=== PATIENT | female | born 1990 | race Caucasian/White ===

== ENCOUNTER 2016-07-20 20:41 | Emergency (ER) | payer OTHER ==
[~2016-07-20 20:41] MED LIST: CIPR500T PO
[2016-07-20 20:43] VITALS: BP 110/74
--- NOTE | 2016-07-20 21:01 | PHYS DOC ---
Past Medical History Past Medical History: No Pertinent History Past Surgical History: No Surgical History Alcohol Use: None Drug Use: None Adult General Chief Complaint Chief Complaint: LACERATION/AVULSION [facility] HPI Patient is a 26 year old female presents emergency Department with complaint of a laceration to her right fifth finger secondary to attempted to grab an open aluminum can that was falling down. She denies any additional injuries or concerns. She denies numbness/tingling or inability to move her finger. She cannot remember the last time she had a tetanus shot. Review of Systems Review of Systems Constitutional: Denies fever or chills [] Eyes: Denies change in visual acuity, redness, or eye pain [] HENT: Denies nasal congestion or sore throat [] Respiratory: Denies cough or shortness of breath [] Cardiovascular: No additional information not addressed in HPI [] GI: Denies abdominal pain, nausea, vomiting, bloody stools or diarrhea [] : Denies dysuria or hematuria [] Musculoskeletal: Denies back pain or joint pain [] Integument: Denies rash or skin lesions [] Neurologic: Denies headache, focal weakness or sensory changes [] Endocrine: Denies polyuria or polydipsia [] Current Medications Current Medications Current Medications Medications (Trade) Dose Ordered Sig/Russell Start Time Stop Time Status Last Admin Dose Admin Diphtheria/ Tetanus/Acell Pertussis (Boostrix) 0.5 ml ONCE ONCE 07/20/16 21:15 07/20/16 21:16 DC 07/20/16 21:11 0.5 ML Lidocaine/Sodium Bicarbonate (Buffered Lidocaine 1%) 20 ml 1X ONCE 07/20/16 21:15 07/20/16 21:16 DC 07/20/16 21:11 20 ML Allergies Allergies Allergies Coded Allergies Type Severity Reaction Last Updated Verified Penicillins Allergy Intermediate HIVES 01/22/16 Yes Physical Exam Physical Exam Constitutional: Well developed, well nourished, mild distress, non-toxic appearance. HENT: Normocephalic, atraumatic, bilateral external ears normal, oropharynx moist, no oral exudates, nose normal. [] Eyes: PERRLA, EOMI, conjunctiva normal, no discharge. [] Neck: Normal range of motion, no tenderness, supple, no stridor. [] Cardiovascular:Heart rate regular rhythm, no murmur [] Lungs & Thorax: Bilateral breath sounds clear to auscultation [] Abdomen: Bowel sounds normal, soft, no tenderness, no masses, no pulsatile masses. [] Skin: Warm, dry, no erythema, no rash. [] Back: No tenderness, no CVA tenderness. [] Extremities: Right fifth finger with an approximate 2.5 cm flap laceration of the proximal phalanx, palmar aspect. This does extend into the subcutaneous fat. There is no active bleeding. Flexor and extensor mechanism is intact at both the PIPJ and the DIPJ. Fingers neurovascularly intact with capillary refill less than 2 seconds. Neurologic: Alert and oriented X 3, normal motor function, normal sensory function, no focal deficits noted. [] Psychologic: Affect normal, judgement normal, mood normal. [] Current Patient Data Vital Signs Vital Signs Date Time Temp Pulse Resp B/P Pulse Ox O2 Delivery O2 Flow Rate FiO2 07/20/16 20:43 99.0 84 18 97 Room Air 99.0 EKG EKG [] Radiology/Procedures Radiology/Procedures Procedure note: 3.5 cm laceration to the palmar surface of the proximal phalanx of the right fifth finger was anesthetized with buffered 1% lidocaine. Wound was cleansed with Betadine solution and rinsed with copious amounts of saline. The flap was retracted to examine the wound. The basement of the wound does not extend past the subcutaneous fat. Wound margins were approximated utilizing 5-0 Prolene in a simple interrupted fashion for single-layer closure with a total of 7 stitches. Patient tolerated the procedure well. Course & Med Decision Making Course & Med Decision Making Pertinent Labs and Imaging studies reviewed. (See chart for details) [] Dragon Disclaimer Dragon Disclaimer This electronic medical record was generated, in whole or in part, using a voice recognition dictation system. Departure Departure Impression: Primary Impression: Laceration Disposition: 01 HOME, SELF-CARE Condition: IMPROVED Referrals: NO PCP (PCP) Patient Instructions: Diphtheria Toxoid; Tetanus Toxoid Adsorbed, DT, Td, Laceration Care, Adult, [id number] Additional Instructions: 1. Stitches need to be removed in 7-10 days. 2. Review the discharge instructions provided for self-care and reasons to return the emergency department. 3. Acetaminophen 4-6 hours or ibuprofen every 8 hours for the discomfort. 4. Follow-up with your primary care doctor for wound check and suture removal in 7-10 days. If you do not have one, then use the pamphlet provided for assistance in finding a primary care doctor to address your medical concerns. CHERYL LI Jul 20, 2016 21:01
[2016-07-20] MEDS ORDERED: DIPHTH,PERTUSS(ACELL),TET TOX 0.5 ML DISP.SYRIN. VAX IM ONE (21:15)
[2016-07-20] MEDS ORDERED: LIDOCAINE 1% / SOD BICARB 8.4% 20 ML VIAL. IJ ONE (21:15)
== END 2016-07-20 21:34 | disposition home or self-care (01) ==
LOC: ER 20:41
DX: S61.216A Laceration without foreign body of right little finger without damage to nail, initial encounter (principal); Z88.0 Allergy status to penicillin; W26.8XXA Contact with other sharp object(s), not elsewhere classified, initial encounter; Y93.89 Activity, other specified; Y92.89 Other specified places as the place of occurrence of the external cause; Y99.8 Other external cause status
CPT/HCPCS: 12002; 90471; 90715; 99283-25

== ENCOUNTER 2016-07-30 20:32 | Emergency (ER) | payer OTHER ==
[~2016-07-30] VITALS: Ht 165.1 cm; Wt 95.3 kg
[2016-07-30 20:39] VITALS: BP 119/72
[2016-07-30 21:15] LABS: BILIRUBIN,URINE NEGATIVE (NEG); GLUCOSE,URINE NEGATIVE (NEG); NITRITE,URINE NEGATIVE (NEG); PROTEIN,URINE NEGATIVE (NEG-TRACE); UROBILINOGEN,URINE 0.2 mg/dL (0.2 mg/dL)
[2016-07-30 21:26] LABS: BACTERIA,URINE MODERATE /HPF (0-FEW); RBC,URINE 0 /HPF (0-2); SQUAMOUS EPITHELIAL CELL,UR MOD /LPF
[2016-07-30] MEDS ORDERED: FAMOTIDINE 20 MG/2 ML VIAL IVP ONE (21:30)
[2016-07-30] MEDS ORDERED: ONDANSETRON PF 4 MG/2 ML VIAL. IV ONE (21:30)
[2016-07-30] MEDS ORDERED: IV NORMAL SALINE 1000ML BAG 1,000 ML IV SCH (21:30)
[2016-07-30 21:38] LABS: BASO % 0 % (0-3); EOS % 0 % (0-3); HEMATOCRIT 39.1 % (36.0-47.0); HEMOGLOBIN 13.3 g/dL (12.0-15.5); LYMPH # 1.3 x10^3/uL (1.0-4.8); LYMPH % 16 % (24-48); MEAN CORPUSCULAR HEMOGLOBIN 30 pg (25-35); MEAN CORPUSCULAR HGB CONC 34 g/dL (31-37); MEAN CORPUSCULAR VOLUME 90 fL (79-100); MONO % 6 % (0-9); NEUT % 78 % (31-73); PLATELET COUNT 232 x10^3/uL (140-400); RED BLOOD COUNT 4.35 x10^6/uL (3.50-5.40); RED CELL DISTRIBUTION WIDTH 13.2 % (11.5-14.5); WHITE BLOOD COUNT 8.5 x10^3/uL (4.0-11.0)
[2016-07-30 21:52] LABS: CALCIUM 8.8 mg/dL (8.5-10.1); CREATININE 0.6 mg/dL (0.6-1.0); GFR 122.8; POTASSIUM 3.6 mmol/L (3.5-5.1)
[2016-07-30 21:53] LABS: NEG OBC SER NEG; POS OBC SER POS
[2016-07-30 21:58] LABS: ALBUMIN 3.7 g/dL (3.4-5.0); ALBUMIN/GLOBULIN RATIO 0.8 (1.0-1.7); TOTAL BILIRUBIN 0.5 mg/dL (0.2-1.0); TOTAL PROTEIN 8.4 g/dL (6.4-8.2)
[2016-07-30] MEDS ORDERED: ONDA4TAB10 SL (22:03)
--- NOTE | 2016-07-30 22:03 | PHYS DOC ---
Past Medical History Past Medical History: No Pertinent History Past Surgical History: No Surgical History Alcohol Use: None Drug Use: None Adult General Chief Complaint Chief Complaint: NAUSEA/VOMITING/DIARRHA HPI HPI Patient is a 26 year old female who presents here today complaining of nausea vomiting and hematemesis. Patient denies any liver longer any problems other than a UTI. Patient has no history of hypertension or diabetes. Patient has no history of peptic ulcer disease. Patient has not had any abdominal surgeries in the past. Patient does not smoke or do drugs. Patient is allergic to penicillin. Patient has any fevers shakes chills. Patient reports she's had 5 episodes of nausea and vomiting which is typical before she starts her menses. Patient reports her last menstrual period was one month ago per patient has any abdominal pain. Patient denies any dysuria frequency or urgency. Patient has any chest pain or shortness of breath. Patient reports that she had multiple episodes of vomiting the last time she's noticed a streak of blood in it. Patient's physical exam is unremarkable. Patient's abdomen is soft nontender no rebound or guarding. Patient does not present with any signs or symptoms consistent with an acute surgical abdomen. Patient does not present with any signs or symptoms of hemodynamic instability. Patient's heart rate was approximately 75 when talking her. Patient denies any dizziness or postural symptoms. Patient's ER course was significant for normal labs. Patient's parents this was negative. Patient's electrolytes were within normal limits. Patient's hemoglobin was normal. A/P #1 nausea vomiting. Patient clinically and hemodynamically stable in the ER. Patient does not show any signs or symptoms consistent with hemodynamic instability. Patient does blood in her vomit which I believe are secondary to multiple episodes of vomiting. Patient does not present with typical signs or symptoms I would be concerned with Boerhaave's or esophageal injury. Patient will be discharged home in stable condition with strict precautions to return to the ER if she has any persistent vomiting of blood or any concerns whatsoever. Patient understands these precautions and does agree to return the ER is concerned that she might have. Patient will be discharged home with Ethel ODT's assist her with her emesis. Review of Systems Review of Systems Constitutional: Denies fever or chills [] Eyes: Denies change in visual acuity, redness, or eye pain [] HENT: Denies nasal congestion or sore throat [] All other review systems are negative except as documented in the history of present illness portion. Current Medications Current Medications Current Medications Medications (Trade) Dose Ordered Sig/Russell Start Time Stop Time Status Last Admin Dose Admin Famotidine (Pepcid) 20 mg 1X ONCE 07/30/16 21:30 07/30/16 21:31 DC 07/30/16 21:30 20 MG Ondansetron HCl (Zofran) 4 mg 1X ONCE 07/30/16 21:30 07/30/16 21:31 DC 07/30/16 21:30 4 MG Sodium Chloride (Iv Sodium Chloride 0.9% 1000ml Bag) 1,000 ml @ 1,000 mls/hr Q1H 07/30/16 21:30 07/30/16 22:29 07/30/16 21:30 1,000 MLS/HR Allergies Allergies Allergies Coded Allergies Type Severity Reaction Last Updated Verified Penicillins Allergy Intermediate HIVES 01/22/16 Yes Physical Exam Physical Exam Constitutional: Well developed, well nourished, no acute distress, non-toxic appearance. [] HENT: Normocephalic, atraumatic, bilateral external ears normal, oropharynx moist, no oral exudates, nose normal. [] Eyes: PERRLA, EOMI, conjunctiva normal, no discharge. [] Neck: Normal range of motion, no tenderness, supple, no stridor. [] Cardiovascular:Heart rate regular rhythm, no murmur [] Lungs & Thorax: Bilateral breath sounds clear to auscultation [] Abdomen: Bowel sounds normal, soft, no tenderness, no masses, no pulsatile masses. [] Skin: Warm, dry, no erythema, no rash. [] Back: No tenderness, no CVA tenderness. [] Extremities: No tenderness, no cyanosis, no clubbing, ROM intact, no edema. [] Neurologic: Alert and oriented X 3, normal motor function, normal sensory function, no focal deficits noted. [] Psychologic: Affect normal, judgement normal, mood normal. [] Current Patient Data Vital Signs Vital Signs Date Time Temp Pulse Resp B/P Pulse Ox O2 Delivery O2 Flow Rate FiO2 07/30/16 20:39 98.4 90 16 119/72 97 Room Air 98.4 Lab Values Laboratory Tests Test 07/30/16 19:57 07/30/16 21:00 07/30/16 21:30 POC Urine HCG, Qualitative Hcg negative (Negative) Urine Collection Type Unknown Urine Color Yellow Urine Clarity Clear Urine pH 6.0 Urine Specific [place] 1.025 Urine Protein Negativemg/dL (NEG-TRACE) Urine Glucose (UA) Negativemg/dL (NEG) Urine Ketones (Stick) Negativemg/dL (NEG) Urine Blood Negative (NEG) Urine Nitrite Negative (NEG) Urine Bilirubin Negative (NEG) Urine Urobilinogen Dipstick 0.2mg/dL (0.2 mg/dL) Urine Leukocyte Esterase Negative (NEG) Urine RBC 0/HPF (0-2) Urine WBC 1-4/HPF (0-4) Urine Squamous Epithelial Cells Mod/LPF Urine Bacteria Moderate/HPF (0-FEW) Urine Mucus Mod/LPF White Blood Count 8.5x10^3/uL (4.0-11.0) Red Blood Count 4.35x10^6/uL (3.50-5.40) Hemoglobin 13.3g/dL (12.0-15.5) Hematocrit 39.1% (36.0-47.0) Mean Corpuscular Volume 90fL (79-100) Mean Corpuscular Hemoglobin 30pg (25-35) Mean Corpuscular Hemoglobin Concent 34g/dL (31-37) Red Cell Distribution Width 13.2% (11.5-14.5) Platelet Count 232x10^3/uL (140-400) Neutrophils (%) (Auto) 78% (31-73) H Lymphocytes (%) (Auto) 16% (24-48) L Monocytes (%) (Auto) 6% (0-9) Eosinophils (%) (Auto) 0% (0-3) Basophils (%) (Auto) 0% (0-3) Neutrophils # (Auto) 6.6x10^3uL (1.8-7.7) Lymphocytes # (Auto) 1.3x10^3/uL (1.0-4.8) Monocytes # (Auto) 0.5x10^3/uL (0.0-1.1) Eosinophils # (Auto) 0.0x10^3/uL (0.0-0.7) Basophils # (Auto) 0.0x10^3/uL (0.0-0.2) Sodium Level 139mmol/L (136-145) Potassium Level 3.6mmol/L (3.5-5.1) Chloride Level 103mmol/L (98-107) Carbon Dioxide Level 24mmol/L (21-32) Anion Gap 12 (6-14) Blood Urea Nitrogen 9mg/dL (7-20) Creatinine 0.6mg/dL (0.6-1.0) Estimated GFR (Cockcroft-Gault) 122.8 BUN/Creatinine Ratio 15 (6-20) Glucose Level 96mg/dL (70-99) Calcium Level 8.8mg/dL (8.5-10.1) Total Bilirubin Pending Aspartate Amino Transferase (AST) Pending Alanine Aminotransferase (ALT) Pending Alkaline Phosphatase Pending Total Protein Pending Albumin Pending Albumin/Globulin Ratio Pending Lipase Pending Serum Test, Qualitative Negative (NEG) Laboratory Tests 07/30/16 21:30 Laboratory Tests 07/30/16 21:30 EKG EKG [] Radiology/Procedures Radiology/Procedures [] Impressions: Obstruction series not indicated secondary to patient's abdominal exam being completely nontender. Normal active bowel sounds. Course & Med Decision Making Course & Med Decision Making Pertinent Labs and Imaging studies reviewed. (See chart for details) [] Dragon Disclaimer Dragon Disclaimer This electronic medical record was generated, in whole or in part, using a voice recognition dictation system. Departure Departure Impression: Primary Impression: Dehydration Additional Impressions: Nausea & vomiting Hematemesis Disposition: 01 HOME, SELF-CARE Condition: IMPROVED Referrals: NO PCP (PCP) Patient Instructions: Hematemesis Scripts Ondansetron (Zofran Odt)4 Mg Tab.rapdis1 Tab SL Q6HRS PRN NAUSEA #12 TAB Prov:MELISSA VALENCIA MD 07/30/16 Problem Qualifiers MELISSA VALENCIA MD Jul 30, 2016 22:03
== END 2016-07-30 22:45 | disposition home or self-care (01) ==
LOC: ER 20:32
DX: E86.0 Dehydration (principal); K92.0 Hematemesis; Z88.0 Allergy status to penicillin
CPT/HCPCS: 36415; 80053; 81001; 81025; 83690; 84703; 85027; 87086; 96374; 99284; J2405; J7030; S0028

== ENCOUNTER → 2016-12-24 | Outpatient (CLI) | payer OTHER ==
[~2016-12-24] MED LIST changes: +ONDA4TAB10 SL
--- NOTE | 2016-12-24 08:41 | RAD ---
Indication possible lump on physical exam. Targeted imaging of the right breast was performed. Examination was targeted to approximately the 3:00 position of the breast were a possible lump was identified on physical exam. No abnormality is seen in the targeted area of the right breast examined. IMPRESSION: Normal targeted ultrasound evaluation of the right breast. If there is a discrete, palpable, mass on physical examination biopsy may be warranted despite unremarkable imaging. BI-RADS 2. Benign findings
== END | disposition home or self-care (01) ==
LOC: KCIC US 08:03
PROVIDERS: ATTEND Family Medicine
DX: N63 Unspecified lump in breast (principal)
CPT/HCPCS: 76641

== ENCOUNTER 2017-02-22 07:52 | Emergency (ER) | payer OTHER ==
[~2017-02-22] VITALS: Ht 165.1 cm; Wt 99.8 kg
--- NOTE | 2017-02-22 08:04 | PHYS DOC ---
Past Medical History Past Medical History: No Pertinent History Past Surgical History: No Surgical History Alcohol Use: None Drug Use: None Adult General Chief Complaint Chief Complaint: ABDOMINAL PAIN HPI HPI Patient is a 26 year old female who presents with nausea vomiting diarrhea. She states her symptoms started over night. She's vomited several times since had liquid stools. She does have crampy suprapubic abdominal pain. She denies any fevers chills currently. She denies any recent travel or sick contacts. He states is a crampy type abdominal pain that's been there constantly over the last several hours. Review of Systems Review of Systems Constitutional: Denies fever or chills [] Eyes: Denies change in visual acuity, redness, or eye pain [] HENT: Denies nasal congestion or sore throat [] Respiratory: Denies cough or shortness of breath [] Cardiovascular: No additional information not addressed in HPI [] GI: Positive for abdominal pain, nausea, vomiting, diarrhea, Denies any bloody stools : Denies dysuria or hematuria [] Musculoskeletal: Denies back pain or joint pain [] Integument: Denies rash or skin lesions [] Neurologic: Denies headache, focal weakness or sensory changes [] Endocrine: Denies polyuria or polydipsia [] Current Medications Current Medications Current Medications Medications (Trade) Dose Ordered Sig/Russell Start Time Stop Time Status Last Admin Dose Admin Levofloxacin (Levaquin) 500 mg 1X ONCE 02/22/17 10:30 02/22/17 10:31 Ondansetron HCl (Zofran) 4 mg 1X ONCE 02/22/17 08:15 02/22/17 08:16 DC 02/22/17 08:29 4 MG Sodium Chloride 1,000 ml @ 1,000 mls/hr Q1H 02/22/17 08:11 02/22/17 09:10 DC 02/22/17 08:29 1,000 MLS/HR Allergies Allergies Allergies Coded Allergies Type Severity Reaction Last Updated Verified Penicillins Allergy Intermediate HIVES 01/22/16 Yes Physical Exam Physical Exam Constitutional: Well developed, well nourished, no acute distress, non-toxic appearance. [] HENT: Normocephalic, atraumatic, bilateral external ears normal, oropharynx moist, no oral exudates, nose normal. [] Eyes: PERRLA, EOMI, conjunctiva normal, no discharge. [] Neck: Normal range of motion, no tenderness, supple, no stridor. [] Cardiovascular:Heart rate regular rhythm, no murmur [] Lungs & Thorax: Bilateral breath sounds clear to auscultation [] Abdomen: Bowel sounds normal, soft, no tenderness, no masses, no pulsatile masses. [] Skin: Warm, dry, no erythema, no rash. [] Back: No tenderness, no CVA tenderness. [] Extremities: No tenderness, no cyanosis, no clubbing, ROM intact, no edema. [] Neurologic: Alert and oriented X 3, normal motor function, normal sensory function, no focal deficits noted. [] Psychologic: Affect normal, judgement normal, mood normal. [] Current Patient Data Vital Signs Vital Signs Date Time Temp Pulse Resp B/P (MAP) Pulse Ox O2 Delivery O2 Flow Rate FiO2 02/22/17 09:07 104 19 105/63 (77) 95 Room Air 02/22/17 07:55 98.4 98.4 Lab Values Laboratory Tests Test 02/22/17 07:55 02/22/17 08:01 02/22/17 08:25 Urine Collection Type Unknown Urine Color Yellow Urine Clarity Clear Urine pH 6.5 Urine Specific [place] 1.025 Urine Protein Negative mg/dL (NEG-TRACE) Urine Glucose (UA) Negative mg/dL (NEG) Urine Ketones (Stick) Negative mg/dL (NEG) Urine Blood Negative (NEG) Urine Nitrite Negative (NEG) Urine Bilirubin Negative (NEG) Urine Urobilinogen Dipstick 0.2 mg/dL (0.2 mg/dL) Urine Leukocyte Esterase Large (NEG) Urine RBC 0 /HPF (0-2) Urine WBC 20-40 /HPF (0-4) Urine Squamous Epithelial Cells Many /LPF Urine Bacteria Many /HPF (0-FEW) Urine Opiates Screen Neg (NEG) Urine Methadone Screen Neg (NEG) Urine Barbiturates Neg (NEG) Urine Phencyclidine Screen Neg (NEG) Urine Amphetamine/Methamphetamine Neg (NEG) Urine Benzodiazepines Screen Neg (NEG) Urine Cocaine Screen Neg (NEG) Urine Cannabinoids Screen Neg (NEG) Urine Ethyl Alcohol Neg (NEG) POC Urine HCG, Qualitative Hcg negative (Negative) White Blood Count 6.6 x10^3/uL (4.0-11.0) Red Blood Count 4.46 x10^6/uL (3.50-5.40) Hemoglobin 13.7 g/dL (12.0-15.5) Hematocrit 40.3 % (36.0-47.0) Mean Corpuscular Volume 90 fL (79-100) Mean Corpuscular Hemoglobin 31 pg (25-35) Mean Corpuscular Hemoglobin Concent 34 g/dL (31-37) Red Cell Distribution Width 12.2 % (11.5-14.5) Platelet Count 201 x10^3/uL (140-400) Neutrophils (%) (Auto) 87 % (31-73) H Lymphocytes (%) (Auto) 8 % (24-48) L Monocytes (%) (Auto) 4 % (0-9) Eosinophils (%) (Auto) 0 % (0-3) Basophils (%) (Auto) 0 % (0-3) Neutrophils # (Auto) 5.7 x10^3uL (1.8-7.7) Lymphocytes # (Auto) 0.5 x10^3/uL (1.0-4.8) L Monocytes # (Auto) 0.3 x10^3/uL (0.0-1.1) Eosinophils # (Auto) 0.0 x10^3/uL (0.0-0.7) Basophils # (Auto) 0.0 x10^3/uL (0.0-0.2) Segmented Neutrophils % 91 % (35-66) H Band Neutrophils % 1 % (0-9) Lymphocytes % 3 % (24-48) L Monocytes % 5 % (0-10) Platelet Estimate Adequate (ADEQUATE) Sodium Level 136 mmol/L (136-145) Potassium Level 3.7 mmol/L (3.5-5.1) Chloride Level 101 mmol/L (98-107) Carbon Dioxide Level 24 mmol/L (21-32) Anion Gap 11 (6-14) Blood Urea Nitrogen 12 mg/dL (7-20) Creatinine 0.7 mg/dL (0.6-1.0) Estimated GFR (Cockcroft-Gault) 102.8 BUN/Creatinine Ratio 17 (6-20) Glucose Level 112 mg/dL (70-99) H Calcium Level 9.0 mg/dL (8.5-10.1) Total Bilirubin 0.5 mg/dL (0.2-1.0) Aspartate Amino Transferase (AST) 18 U/L (15-37) Alanine Aminotransferase (ALT) 16 U/L (14-59) Alkaline Phosphatase 54 U/L (46-116) Creatine Kinase 52 U/L (26-192) Creatine Kinase MB (Mass) < 0.5 ng/mL (0.0-3.6) Creatine Kinase MB Relative Index % (0-4) Total Protein 7.7 g/dL (6.4-8.2) Albumin 3.4 g/dL (3.4-5.0) Albumin/Globulin Ratio 0.8 (1.0-1.7) L Lipase 70 U/L (73-393) L Serum Test, Qualitative Negative (NEG) Laboratory Tests 02/22/17 08:25 Laboratory Tests 02/22/17 08:25 EKG EKG [] Radiology/Procedures Radiology/Procedures [] Impressions: Nausea vomiting diarrhea UTI Course & Med Decision Making Course & Med Decision Making Pertinent Labs and Imaging studies reviewed. (See chart for details) Labs do not show any acute abnormality's. Patient isn't overtly received abdominal and pelvic ultrasounds of which have asked the charge is to be reversed on. She's being discharged home with antibiotics and ODT Zofran. She feels better. Return precautions given. Dragon Disclaimer Dragon Disclaimer This electronic medical record was generated, in whole or in part, using a voice recognition dictation system. Departure Departure Impression: Primary Impression: Nausea vomiting and diarrhea Disposition: 01 HOME, SELF-CARE Condition: STABLE Referrals: DAVION PEPE MD (PCP) Patient Instructions: Viral Gastroenteritis Additional Instructions: You were seen today for nausea vomiting diarrhea. Her symptoms have improved with IV fluids and antinausea meds. Your being discharged home with antibiotics for the next 3 days in addition to antinausea meds. Please eat a bland diet and push fluids. If you develop uncontrolled nausea vomiting, fevers, abdominal pain or other concerns please return back to emergency pertinent. You should follow up with primary care physician within the next 3-5 days. Scripts Levofloxacin (LEVAQUIN) 500 Mg Tablet 1 TAB PO DAILY, #2 TAB Prov: MY ELI MD 02/22/17 Ondansetron (ZOFRAN ODT) 4 Mg Tab.rapdis 1 TAB SL Q8HRS, #6 TAB Prov: MY ELI MD 02/22/17 MY ELI MD Feb 22, 2017 08:04
[2017-02-22] MEDS ORDERED: IV NORMAL SALINE 1000ML BAG 1,000 ML IV SCH (08:11)
[2017-02-22] MEDS ORDERED: ONDANSETRON PF 4 MG/2 ML VIAL. IV ONE (08:15)
[2017-02-22 08:36] LABS: BILIRUBIN,URINE NEGATIVE (NEG); GLUCOSE,URINE NEGATIVE (NEG); NITRITE,URINE NEGATIVE (NEG); PH,URINE 6.5; PROTEIN,URINE NEGATIVE (NEG-TRACE); UROBILINOGEN,URINE 0.2 mg/dL (0.2 mg/dL)
[2017-02-22 08:39] LABS: BASO % 0 % (0-3); EOS % 0 % (0-3); HEMATOCRIT 40.3 % (36.0-47.0); HEMOGLOBIN 13.7 g/dL (12.0-15.5); LYMPH # 0.5 x10^3/uL (1.0-4.8); LYMPH % 8 % (24-48); MEAN CORPUSCULAR HEMOGLOBIN 31 pg (25-35); MEAN CORPUSCULAR HGB CONC 34 g/dL (31-37); MEAN CORPUSCULAR VOLUME 90 fL (79-100); MONO % 4 % (0-9); NEUT % 87 % (31-73); PLATELET COUNT 201 x10^3/uL (140-400); RED BLOOD COUNT 4.46 x10^6/uL (3.50-5.40); RED CELL DISTRIBUTION WIDTH 12.2 % (11.5-14.5); WHITE BLOOD COUNT 6.6 x10^3/uL (4.0-11.0)
[2017-02-22 08:53] LABS: BARBITURATES NEG (NEG); BENZODIAZEPINES NEG (NEG); CANNABINOIDS NEG (NEG); COCAINE NEG (NEG); METHADONE NEG (NEG); OPIATES NEG (NEG); PHENCYCLIDINE NEG (NEG)
[2017-02-22 08:58] LABS: SQUAMOUS EPITHELIAL CELL,UR MANY /LPF
[2017-02-22 08:59] LABS: CREATININE 0.7 mg/dL (0.6-1.0); GFR 102.8; POTASSIUM 3.7 mmol/L (3.5-5.1)
[2017-02-22 08:59] LABS: BACTERIA,URINE MANY /HPF (0-FEW); RBC,URINE 0 /HPF (0-2); WBC,URINE 20-40 /HPF (0-4)
[2017-02-22 09:03] LABS: NEG OBC SER NEG; POS OBC SER POS
[2017-02-22 09:04] LABS: ALBUMIN 3.4 g/dL (3.4-5.0); ALBUMIN/GLOBULIN RATIO 0.8 (1.0-1.7); TOTAL BILIRUBIN 0.5 mg/dL (0.2-1.0); TOTAL PROTEIN 7.7 g/dL (6.4-8.2)
[2017-02-22 09:07] VITALS: BP 105/63
[2017-02-22 09:17] LABS: CKMB MASS < 0.5 ng/mL (0.0-3.6); CREATINE KINASE 52 U/L (26-192)
[2017-02-22 09:54] LABS: PLT ESTIMATE ADEQUATE (ADEQUATE)
[2017-02-22] MEDS ORDERED: LEVO500T59 PO (10:20)
[2017-02-22] MEDS ORDERED: ONDA4TAB10 SL (10:20)
--- NOTE | 2017-02-22 10:20 | RAD ---
Transabdominal and transvaginal sonography of the pelvis History: Pelvic pain. Transabdominal sonography: The uterus is anteverted in position. The uterus is poorly visualized. Neither ovary is visualized. Therefore, transvaginal sonography will be performed. No adnexal mass or free fluid is evident. Transvaginal sonography: The endometrial canal measures 4.8 mm in thickness which is normal. No uterine mass or fibroid is seen. No free fluid is seen within the cul-de-sac. The right ovary measures 2.7 cm and 3.1 cm and 2.7 cm in size and contains multiple small follicular cysts. No dominant ovarian cyst or mass is seen. Color Doppler flow is seen within the right ovary. The left ovary is not visualized. Bilateral pelvic varices are seen within the adnexa. No adnexal mass is seen otherwise. No free fluid is evident. IMPRESSION: Bilateral pelvic varices within the adnexa. No adnexal mass is seen otherwise. The left ovary is not visualized.
--- NOTE | 2017-02-22 10:26 | RAD ---
EXAM: ABDOMINAL ULTRASOUND. HISTORY: Abdominal pain. COMPARISON: None. FINDINGS: Sonographic evaluation of the abdomen was performed. The graphic coordinator suggests hepatic steatosis on real-time scanning but this is not clear on static images. There are no focal lesions. Liver appears mildly enlarged spanning 18 cm. The spleen measures 11.1 cm. The gallbladder is unremarkable without evidence of stones, wall thickening or pericholecystic fluid. There is no sonographic Cochran sign. The common duct measures 5 mm. Limited images of the visualized portions of the head of the pancreas reveal no abnormality. The right kidney measures 10.4 cm. Cortical thickness and echogenicity are preserved. There is no hydronephrosis. The left kidney measures 11.3 cm. Cortical thickness and echogenicity are preserved. There is no hydronephrosis. The visualized portions of the abdominal aorta and inferior vena cava are grossly patent and normal in caliber. IMPRESSION: 1. No cause for acute pain is identified. Borderline hepatomegaly.
== END 2017-02-22 10:35 | disposition home or self-care (01) ==
LOC: ER 07:52
DX: N39.0 Urinary tract infection, site not specified (principal); R19.7 Diarrhea, unspecified; Z88.0 Allergy status to penicillin
CPT/HCPCS: 36415; 76700; 76830; 76856; 80053; 80307; 81001; 81025; 82553; 83690; 84703; 85007; 85025; 87086; 96361; 96374; 99284; J2405; J7030; 96375; G0479

== ENCOUNTER 2018-02-08 07:56 | Emergency (ER) | payer OTHER ==
[~2018-02-08] VITALS: Ht 162.6 cm; Wt 99.8 kg
[~2018-02-08 07:56] MED LIST changes: +LEVO500T59 PO
[2018-02-08 08:00] VITALS: BP 121/75
[2018-02-08] MEDS ORDERED: FAMOTIDINE 20 MG TABLET. PO ONE (08:15)
[2018-02-08] MEDS ORDERED: FAMO-63 PO (08:32)
[2018-02-08] MEDS ORDERED: METH4TAB2 PO (08:32)
--- NOTE | 2018-02-08 08:33 | PHYS DOC ---
Past Medical History Past Medical History: No Pertinent History Past Surgical History: No Surgical History Alcohol Use: Occasionally Drug Use: None Adult General Chief Complaint Chief Complaint: SKIN RASH/ABSCESS [facility] HPI Patient is a 27 year old female who presents with a rash to her face, neck and torso. The patient states that she noticed a rash yesterday after work. She did not eat any new foods or used any new products that she knows of. She did try using her son's hydrocortisone cream with little relief. She states that it did help with the itching but she continued to have the rash. She has been taking Benadryl. Review of Systems Review of Systems Constitutional: Denies fever or chills [] Respiratory: Denies cough or shortness of breath [] Cardiovascular: No additional information not addressed in HPI [] GI: Denies abdominal pain, nausea, vomiting, bloody stools or diarrhea [] : Denies dysuria or hematuria [] Musculoskeletal: Denies back pain or joint pain [] Integument: See history of present illness Neurologic: Denies headache, focal weakness or sensory changes [] Endocrine: Denies polyuria or polydipsia [] All other systems were reviewed and found to be within normal limits, except as documented in this note. Current Medications Current Medications Current Medications Medications (Trade) Dose Ordered Sig/Russell Start Time Stop Time Status Last Admin Dose Admin Famotidine (Pepcid) 20 mg 1X ONCE 02/08/18 08:15 02/08/18 08:16 DC 02/08/18 08:42 20 MG Allergies Allergies Allergies Coded Allergies Type Severity Reaction Last Updated Verified Penicillins Allergy Intermediate HIVES 01/22/16 Yes Physical Exam Physical Exam Constitutional: Well developed, well nourished, no acute distress, non-toxic appearance. [] Cardiovascular:Heart rate regular rhythm, no murmur [] Lungs & Thorax: Bilateral breath sounds clear to auscultation [] Abdomen: Bowel sounds normal, soft, no tenderness, no masses, no pulsatile masses. [] Skin: The patient has erythematous patches to her forehead, neck and behind her ear to the right side with scattered erythematous patches on her torso Back: No tenderness, no CVA tenderness. [] Extremities: No tenderness, no cyanosis, no clubbing, ROM intact, no edema. [] Neurologic: Alert and oriented X 3, normal motor function, normal sensory function, no focal deficits noted. [] Psychologic: Affect normal, judgement normal, mood normal. [] Current Patient Data Vital Signs Vital Signs Date Time Temp Pulse Resp B/P (MAP) Pulse Ox O2 Delivery O2 Flow Rate FiO2 02/08/18 08:00 97.9 74 17 100 Room Air 97.9 EKG EKG [] Radiology/Procedures Radiology/Procedures [] Course & Med Decision Making Course & Med Decision Making Pertinent Labs and Imaging studies reviewed. (See chart for details) []The patient was given a dose of Pepcid in the emergency department. She has been taking benadryl at home. Dragon Disclaimer Dragon Disclaimer This electronic medical record was generated, in whole or in part, using a voice recognition dictation system. Departure Departure Impression: Primary Impression: Contact dermatitis Disposition: HOME, SELF-CARE Condition: STABLE Referrals: DAVION PEPE MD (PCP) Patient Instructions: Contact Dermatitis Additional Instructions: Take the medications as prescribed. Continue to use Benadryl scheduled. Follow- up with your primary care provider for recheck in 3 days if not improving or return to the emergency department if worsening. Scripts Famotidine (PEPCID) 20 Mg Tablet 20 MG PO HS, #20 TAB Prov: BOGDAN MELTON APRN 02/08/18 Methylprednisolone (MEDROL) 4 Mg Tab.ds.pk 1 PKG PO UD, #1 PKG Prov: BOGDAN MELTON APRN 02/08/18 BOGDAN MELTON APRN Feb 08, 2018 08:33
== END 2018-02-08 08:43 | disposition home or self-care (01) ==
LOC: ER 07:56
DX: L25.9 Unspecified contact dermatitis, unspecified cause (principal); Z88.0 Allergy status to penicillin
CPT/HCPCS: 99283

== ENCOUNTER → 2018-05-31 | Outpatient (CLI) | payer OTHER ==
[~2018-05-31] MED LIST changes: +FAMO-63 PO; +METH4TAB2 PO
--- NOTE | 2018-05-31 16:22 | RAD ---
EXAM: Obstetrics sonogram. HISTORY: Vaginal spotting. Uncertain dates. TECHNIQUE: Sonographic imaging of a gravid uterus was performed. COMPARISON: None. FINDINGS: The uterus is normal in size. There is a single intrauterine gestational sac with pole and yolk sac. The crown-rump length is 1.6 cm, corresponding with a gestational age of 8 weeks and 0 days. The heart rate is normal at 163 bpm. The estimated due date based on ultrasound measurements is 01/10/2019. The ovaries are normal in size and demonstrate normal blood flow. There is no pelvic free fluid. The gestational sac is normal in configuration and located appropriately. IMPRESSION: Single intrauterine fetus with an estimated gestational age of 8 weeks and 0 days and heart rate of 163 bpm. Electronically signed by: Sarah Burciaga MD (05/31/2018 4:20 PM) [facility]
== END | disposition home or self-care (01) ==
LOC: US 15:58
PROVIDERS: ATTEND Family Medicine
DX: O20.9 Hemorrhage in early pregnancy, unspecified (principal); Z3A.08 8 weeks gestation of pregnancy
CPT/HCPCS: 76801

== ENCOUNTER 2018-06-16 20:24 | Emergency (ER) | payer OTHER ==
[~2018-06-16] VITALS: Ht 165.1 cm; Wt 104.3 kg
[2018-06-16 20:25] VITALS: BP 127/71
[2018-06-16] MEDS ORDERED: IV NORMAL SALINE 1000ML BAG 1,000 ML IV SCH (21:15)
[2018-06-16 21:30] LABS: CALCIUM 8.7 mg/dL (8.5-10.1); CREATININE 0.5 mg/dL (0.6-1.0); GFR 149.1; POTASSIUM 3.7 mmol/L (3.5-5.1)
[2018-06-16 21:37] LABS: ALBUMIN 3.2 g/dL (3.4-5.0); ALBUMIN/GLOBULIN RATIO 0.7 (1.0-1.7); TOTAL BILIRUBIN 0.2 mg/dL (0.2-1.0); TOTAL PROTEIN 7.5 g/dL (6.4-8.2)
--- NOTE | 2018-06-16 22:07 | RAD ---
Indication:pelvic pain and vag spotting x 90 minutes< TECHNIQUE: Ultrasound OB less than 14 weeks. COMPARISON: 05/31/2018 FINDINGS: Anteverted uterus measuring 12.9 x 6.5 x 9.0 cm. Cervix measures 4.4 cm in length and is closed. Right ovary measures 2.4 x 3.6 x 1.8 cm. Left ovary measures 3.0 x 1.6 x 1.7 cm. Single intrauterine seen with pole with crown-rump length measuring 3.5 cm corresponding to gestation age of 10 weeks 2 days. heart rate 158 bpm. No free pelvic fluid. Impression: Single viable live intrauterine with estimated gestation age of 10 weeks 2 days and due date of 01/10/2019. Electronically signed by: Howard Gotti DO (06/16/2018 10:04 PM) [facility]
--- NOTE | 2018-06-16 22:49 | PHYS DOC ---
Past Medical History Past Medical History: No Pertinent History Past Surgical History: No Surgical History Alcohol Use: Occasionally Drug Use: None Adult General Chief Complaint Chief Complaint: ABDOMINAL PAIN IN HPI HPI Patient is a 28-year-old female who presents with complaint of lower abdominal cramping with vaginal spotting. Patient states that symptoms began this morning. She states that symptoms have been waxing and waning. She states that she is approximately 10 weeks . She denies any nausea or vomiting. She also denies any diarrhea. Currently she rates pain at a 3 out of 10. Review of Systems Review of Systems Constitutional: Denies fever or chills [] Respiratory: Denies cough or shortness of breath [] Cardiovascular: No additional information not addressed in HPI [] GI: Complains of lower abdominal/pelvic pain without nausea, vomiting or diarrhea [] : Denies dysuria or hematuria. Complains of vaginal spotting. [] Musculoskeletal: Denies back pain or joint pain [] All other systems were reviewed and found to be within normal limits, except as documented in this note. Current Medications Current Medications Current Medications Medications (Trade) Dose Ordered Sig/Russell Start Time Stop Time Status Last Admin Dose Admin Sodium Chloride 1,000 ml @ 1,000 mls/hr Q1H 06/16/18 21:15 06/16/18 22:14 DC 06/16/18 21:26 1,000 MLS/HR Allergies Allergies Allergies Coded Allergies Type Severity Reaction Last Updated Verified Penicillins Allergy Intermediate HIVES 01/22/16 Yes Physical Exam Physical Exam Constitutional: Well developed, well nourished, no acute distress, non-toxic appearance. [] HENT: Normocephalic, atraumatic, bilateral external ears normal, oropharynx moist, no oral exudates, nose normal. [] Eyes: PERRLA, EOMI, conjunctiva normal, no discharge. [] Neck: Normal range of motion, no tenderness, supple, no stridor. [] Cardiovascular: Regular rate and rhythm[] Lungs & Thorax: Bilateral breath sounds clear to auscultation [] Abdomen: Bowel sounds normal, soft, with mild bilateral adnexal tenderness. [] Skin: Warm, dry, no erythema, no rash. [] Extremities: No tenderness, no cyanosis, no clubbing, ROM intact, no edema. [] Neurologic: Alert and oriented X 3, no focal deficits noted. [] Current Patient Data Vital Signs Vital Signs Date Time Temp Pulse Resp B/P (MAP) Pulse Ox O2 Delivery O2 Flow Rate FiO2 06/16/18 20:25 98.0 95 16 127/71 (89) 98 Room Air 98.0 Lab Values Laboratory Tests Test 06/16/18 20:50 White Blood Count 7.8 x10^3/uL (4.0-11.0) Red Blood Count 4.12 x10^6/uL (3.50-5.40) Hemoglobin 12.7 g/dL (12.0-15.5) Hematocrit 37.6 % (36.0-47.0) Mean Corpuscular Volume 91 fL (79-100) Mean Corpuscular Hemoglobin 31 pg (25-35) Mean Corpuscular Hemoglobin Concent 34 g/dL (31-37) Red Cell Distribution Width 13.1 % (11.5-14.5) Platelet Count 247 x10^3/uL (140-400) Neutrophils (%) (Auto) 64 % (31-73) Lymphocytes (%) (Auto) 27 % (24-48) Monocytes (%) (Auto) 7 % (0-9) Eosinophils (%) (Auto) 1 % (0-3) Basophils (%) (Auto) 0 % (0-3) Neutrophils # (Auto) 5.0 x10^3uL (1.8-7.7) Lymphocytes # (Auto) 2.1 x10^3/uL (1.0-4.8) Monocytes # (Auto) 0.6 x10^3/uL (0.0-1.1) Eosinophils # (Auto) 0.1 x10^3/uL (0.0-0.7) Basophils # (Auto) 0.0 x10^3/uL (0.0-0.2) Sodium Level 136 mmol/L (136-145) Potassium Level 3.7 mmol/L (3.5-5.1) Chloride Level 101 mmol/L (98-107) Carbon Dioxide Level 24 mmol/L (21-32) Anion Gap 11 (6-14) Blood Urea Nitrogen 7 mg/dL (7-20) Creatinine 0.5 mg/dL (0.6-1.0) L Estimated GFR (Cockcroft-Gault) 149.1 BUN/Creatinine Ratio 14 (6-20) Glucose Level 100 mg/dL (70-99) H Calcium Level 8.7 mg/dL (8.5-10.1) Total Bilirubin 0.2 mg/dL (0.2-1.0) Aspartate Amino Transferase (AST) 11 U/L (15-37) L Alanine Aminotransferase (ALT) 11 U/L (14-59) L Alkaline Phosphatase 58 U/L (46-116) Total Protein 7.5 g/dL (6.4-8.2) Albumin 3.2 g/dL (3.4-5.0) L Albumin/Globulin Ratio 0.7 (1.0-1.7) L Laboratory Tests 06/16/18 20:50 Laboratory Tests 06/16/18 20:50 EKG EKG [] Radiology/Procedures Radiology/Procedures [] Impressions: PROCEDURE: OB < 14 WKS Indication:pelvic pain and vag spotting x 90 minutes< TECHNIQUE: Ultrasound OB less than 14 weeks. COMPARISON: 05/31/2018 FINDINGS: Anteverted uterus measuring 12.9 x 6.5 x 9.0 cm. Cervix measures 4.4 cm in length and is closed. Right ovary measures 2.4 x 3.6 x 1.8 cm. Left ovary measures 3.0 x 1.6 x 1.7 cm. Single intrauterine seen with pole with crown-rump length measuring 3.5 cm corresponding to gestation age of 10 weeks 2 days. heart rate 158 bpm. No free pelvic fluid. Impression: Single viable live intrauterine with estimated gestation age of 10 weeks 2 days and due date of 01/10/2019. Electronically signed by: Howard Garnett DO (06/16/2018 10:04 PM) [facility] DICTATED and SIGNED BY: HOWARD GARNETT DO DATE: 06/16/182201 Course & Med Decision Making Course & Med Decision Making Pertinent Labs and Imaging studies reviewed. (See chart for details) [] Dragon Disclaimer Dragon Disclaimer This electronic medical record was generated, in whole or in part, using a voice recognition dictation system. Departure Departure Impression: Primary Impression: Threatened miscarriage Disposition: 01 HOME, SELF-CARE Condition: STABLE Referrals: DAVION PEPE MD (PCP) Patient Instructions: Threatened Miscarriage DALLAS MITCHELL Jr., DO Jun 16, 2018 22:49
[2018-06-16 23:11] LABS: BASO % 0 % (0-3); EOS # 0.1 x10^3/uL (0.0-0.7); EOS % 1 % (0-3); HEMATOCRIT 37.6 % (36.0-47.0); HEMOGLOBIN 12.7 g/dL (12.0-15.5); LYMPH # 2.1 x10^3/uL (1.0-4.8); LYMPH % 27 % (24-48); MEAN CORPUSCULAR HEMOGLOBIN 31 pg (25-35); MEAN CORPUSCULAR HGB CONC 34 g/dL (31-37); MEAN CORPUSCULAR VOLUME 91 fL (79-100); MONO # 0.6 x10^3/uL (0.0-1.1); MONO % 7 % (0-9); NEUT % 64 % (31-73); PLATELET COUNT 247 x10^3/uL (140-400); RED BLOOD COUNT 4.12 x10^6/uL (3.50-5.40); RED CELL DISTRIBUTION WIDTH 13.1 % (11.5-14.5); WHITE BLOOD COUNT 7.8 x10^3/uL (4.0-11.0)
== END 2018-06-16 23:55 | disposition home or self-care (01) ==
LOC: ER 20:24
DX: O20.0 Threatened abortion (principal); Z88.0 Allergy status to penicillin; Z3A.10 10 weeks gestation of pregnancy
CPT/HCPCS: 36415; 76801; 80053; 85025; 86850; 86870; 86900; 86901; 99284; J7030

== ENCOUNTER 2018-06-23 16:29 | Emergency (ER) | payer OTHER ==
[~2018-06-23] VITALS: Ht 165.1 cm; Wt 106.1 kg
[2018-06-23 16:54] LABS: BILIRUBIN,URINE NEGATIVE (NEG); CLARITY,URINE CLEAR; COLOR,URINE YELLOW; NITRITE,URINE NEGATIVE (NEG); PROTEIN,URINE NEGATIVE (NEG-TRACE); UROBILINOGEN,URINE 0.2 mg/dL (0.2 mg/dL)
[2018-06-23 17:06] LABS: BACTERIA,URINE FEW /HPF (0-FEW); RBC,URINE 20-40 /HPF (0-2); SQUAMOUS EPITHELIAL CELL,UR MOD /LPF
[2018-06-23 18:02] LABS: BASO % 1 % (0-3); EOS # 0.1 x10^3/uL (0.0-0.7); EOS % 1 % (0-3); HEMATOCRIT 36.6 % (36.0-47.0); HEMOGLOBIN 12.3 g/dL (12.0-15.5); LYMPH # 1.8 x10^3/uL (1.0-4.8); LYMPH % 23 % (24-48); MEAN CORPUSCULAR HEMOGLOBIN 31 pg (25-35); MEAN CORPUSCULAR HGB CONC 34 g/dL (31-37); MEAN CORPUSCULAR VOLUME 92 fL (79-100); MONO # 0.4 x10^3/uL (0.0-1.1); MONO % 6 % (0-9); NEUT # 5.3 x10^3uL (1.8-7.7); NEUT % 70 % (31-73); PLATELET COUNT 206 x10^3/uL (140-400); WHITE BLOOD COUNT 7.6 x10^3/uL (4.0-11.0)
--- NOTE | 2018-06-23 18:21 | RAD ---
Examination: PREG 1ST TRIMESTER History: VAGINAL BLEEDING Comparison/Correlation: None Findings: OB ultrasound exam was performed. Uterus measures 10.8 cm x 8 cm x 7 cm. Cervical length is 4.4 cm. Posterior wall location of the placenta is evident. Intrauterine gestational sac noted. pole is present with heart rate of 160 bpm. [place]-rump length is 4.7 cm corresponding to 11 weeks 4 day gestation. This is the same as the gestational age by last menstrual period. EDC by ultrasound is 01/08/2019. Right adnexa measures 2. 2.9 cm x 2.7 cm x 1.4 cm. Left adnexa is not identified due to overlying bowel gas. No pelvic free fluid. Impression: Single living intrauterine gestation is present. No subchronic hemorrhage. Age by crown-rump length corresponding to 11 weeks 4 day gestation. Electronically signed by: Warner Davila MD (06/23/2018 6:18 PM) [facility]
[2018-06-23 19:15] VITALS: BP 107/76
--- NOTE | 2018-06-23 19:17 | PHYS DOC ---
Past Medical History Past Medical History: No Pertinent History (CHELITA MORA APRN) Past Surgical History: No Surgical History (CHELITA MORA APRN) Alcohol Use: Occasionally Drug Use: None (CHELITA MORA APRN) Adult General Chief Complaint Chief Complaint: VAGINAL PROBLEM HPI HPI Patient is a 28 year old female who is A2 who presents to the ER with complaints of vaginal bleeding that started this morning. She denies any abdominal pain, cramping, or low back pain. She states that the bleeding has not been heavy but reports that she has been passing blood clots. She reports that her last sexual encounter was 3 weeks ago. Pt denies any dysuria, hematuria , increased urinary frequency, or irregular vaginal discharge. Pt denies any pain at this time. (CHELITA MORA APRN) Review of Systems Review of Systems Constitutional: Denies fever or chills [] Respiratory: Denies cough or shortness of breath [] Cardiovascular: No additional information not addressed in HPI [] GI: Denies abdominal pain, nausea, vomiting, or diarrhea [] : Denies dysuria or hematuria ; see HPI[] Musculoskeletal: Denies back pain Integument: Denies rash or skin lesions [] Neurologic: Denies headache, focal weakness or sensory changes [] (CHELITA MORA APRN) Allergies Allergies Allergies Coded Allergies Type Severity Reaction Last Updated Verified Penicillins Allergy Intermediate HIVES 01/22/16 Yes (TRUONG MILLER MD) Physical Exam Physical Exam Constitutional: Well developed, well nourished, no acute distress, non-toxic appearance. [] HENT: Normocephalic, atraumatic, bilateral external ears normal, nose normal. [] Eyes: conjunctiva normal, no discharge. [] Neck: Normal range of motion, no stridor. [] Lungs & Thorax: respirations even and unlabored Pelvic Exam: Boiler Control Technician present Amy RN Abdomen: Nontender External Genitalia: Normal Skin Speculum: Normal vaginal mucosa, dark bloody cervical discharge, OS closed Bimanual: No adnexal masses or tenderness, No CMT Skin: Warm, dry, no erythema, no rash. [] Back: no CVA tenderness. [] Extremities: No cyanosis, no clubbing, ROM intact, no edema. [] Neurologic: Alert and oriented X 3, normal motor function, normal sensory function, no focal deficits noted. [] Psychologic: Affect normal, judgement normal, mood normal. [] (CHELITA MORA APRN) Current Patient Data Vital Signs Vital Signs Date Time Temp Pulse Resp B/P (MAP) Pulse Ox O2 Delivery O2 Flow Rate FiO2 06/23/18 19:15 94 15 107/76 (86) 97 Room Air 06/23/18 16:35 98.4 98.4 (TRUONG MILLER MD) Lab Values Laboratory Tests Test 06/23/18 16:34 06/23/18 16:42 06/23/18 17:54 Urine Collection Type Unknown Urine Color Yellow Urine Clarity Clear Urine pH 6.0 Urine Specific [place] 1.020 Urine Protein Negative mg/dL (NEG-TRACE) Urine Glucose (UA) Negative mg/dL (NEG) Urine Ketones (Stick) 40 mg/dL (NEG) Urine Blood Large (NEG) Urine Nitrite Negative (NEG) Urine Bilirubin Negative (NEG) Urine Urobilinogen Dipstick 0.2 mg/dL (0.2 mg/dL) Urine Leukocyte Esterase Small (NEG) Urine RBC 20-40 /HPF (0-2) Urine WBC 5-10 /HPF (0-4) Urine Squamous Epithelial Cells Mod /LPF Urine Bacteria Few /HPF (0-FEW) Urine Mucus Slight /LPF POC Urine HCG, Qualitative Hcg positive (Negative) White Blood Count 7.6 x10^3/uL (4.0-11.0) Red Blood Count 4.00 x10^6/uL (3.50-5.40) Hemoglobin 12.3 g/dL (12.0-15.5) Hematocrit 36.6 % (36.0-47.0) Mean Corpuscular Volume 92 fL (79-100) Mean Corpuscular Hemoglobin 31 pg (25-35) Mean Corpuscular Hemoglobin Concent 34 g/dL (31-37) Red Cell Distribution Width 13.0 % (11.5-14.5) Platelet Count 206 x10^3/uL (140-400) Neutrophils (%) (Auto) 70 % (31-73) Lymphocytes (%) (Auto) 23 % (24-48) L Monocytes (%) (Auto) 6 % (0-9) Eosinophils (%) (Auto) 1 % (0-3) Basophils (%) (Auto) 1 % (0-3) Neutrophils # (Auto) 5.3 x10^3uL (1.8-7.7) Lymphocytes # (Auto) 1.8 x10^3/uL (1.0-4.8) Monocytes # (Auto) 0.4 x10^3/uL (0.0-1.1) Eosinophils # (Auto) 0.1 x10^3/uL (0.0-0.7) Basophils # (Auto) 0.0 x10^3/uL (0.0-0.2) Maternal Serum HCG Beta Subunit 99997 mIU/mL (0-5) H Laboratory Tests 06/23/18 17:54 (TRUONG MILLER MD) EKG EKG [] (CHELITA MORA APRN) Radiology/Procedures Radiology/Procedures PROCEDURE: PREG 1ST TRIMESTER Examination: PREG 1ST TRIMESTER History: VAGINAL BLEEDING Comparison/Correlation: None Findings: OB ultrasound exam was performed. Uterus measures 10.8 cm x 8 cm x 7 cm. Cervical length is 4.4 cm. Posterior wall location of the placenta is evident. Intrauterine gestational sac noted. pole is present with heart rate of 160 bpm. [place]-rump length is 4.7 cm corresponding to 11 weeks 4 day gestation. This is the same as the gestational age by last menstrual period. EDC by ultrasound is 01/08/2019. Right adnexa measures 2. 2.9 cm x 2.7 cm x 1.4 cm. Left adnexa is not identified due to overlying bowel gas. No pelvic free fluid. Impression: Single living intrauterine gestation is present. No subchronic hemorrhage. Age by crown-rump length corresponding to 11 weeks 4 day gestation. Electronically signed by: Warner Davila MD (06/23/2018 6:18 PM) [facility] [] (CHELITA MORA APRN) Course & Med Decision Making Course & Med Decision Making Pertinent Labs and Imaging studies reviewed. (See chart for details) Dx: vaginal bleeding in 1st trimester; threatened miscarriage Pt was instructed to call Dr. Berrios's office in the morning to arrange follow up. Return to ER if symptoms worsen. Spoke with Dr. Nicole at 1915 and advised of need for follow up. Patient verbalized an understanding of home care, medications, follow-up, and return to ED instructions and was in agreement with the plan of care. [] (CHELITA MORA APRN) Course & Med Decision Making Staff Physician Addendum: I was working in the ER during the course of this patient's visit. I was available for consultation as needed, but I was not directly involved in the care of this patient. (TRUONG MILLER MD) Dragon Disclaimer Dragon Disclaimer This electronic medical record was generated, in whole or in part, using a voice recognition dictation system. (CHELITA MORA APRN) Departure Departure Impression: Primary Impression: Vaginal bleeding before 22 weeks gestation Additional Impression: Threatened in first trimester Disposition: 01 HOME, SELF-CARE Condition: STABLE Referrals: DAVION BERRIOS MD (PCP) Patient Instructions: Threatened Miscarriage, [id number], Vaginal Bleeding During , First Trimester Additional Instructions: Pelvic rest until follow-up with Dr. Berrios. Dr. Berrios has been notified of your visit in the ER today. Your hcg level was [address]392, the baby measured 11 weeks and 4 days and the heart rate was 160. Return to the ER if your symptoms worsen. Problem Qualifiers CHELITA MORA APRN Jun 23, 2018 19:17 TRUONG MILLER MD Jun 24, 2018 00:08
== END 2018-06-23 19:23 | disposition home or self-care (01) ==
LOC: ER 16:29
DX: O20.0 Threatened abortion (principal); Z3A.11 11 weeks gestation of pregnancy; Z88.0 Allergy status to penicillin
CPT/HCPCS: 36415; 76801; 81001; 81025; 84702; 85025; 87086; 99284-25

== ENCOUNTER 2018-11-14 15:16 | Observation (INO) | payer MEDICAID ==
[2018-11-14 16:10] LABS: AMNIO PT NEGATIVE
[2018-11-14 16:11] LABS: BILIRUBIN,URINE NEGATIVE (NEG); CLARITY,URINE CLEAR; COLOR,URINE YELLOW; NITRITE,URINE NEGATIVE (NEG); PH,URINE 6.5; PROTEIN,URINE NEGATIVE (NEG-TRACE); UROBILINOGEN,URINE 0.2 mg/dL (0.2 mg/dL)
[2018-11-14 16:19] LABS: BACTERIA,URINE FEW /HPF (0-FEW); RBC,URINE 0 /HPF (0-2); SQUAMOUS EPITHELIAL CELL,UR FEW /LPF
== END 2018-11-14 16:45 | disposition home or self-care (01) ==
LOC: 3 SO LND 15:16
PROVIDERS: ADMIT Family Medicine; ATTEND Family Medicine
DX: O42.913 Preterm premature rupture of membranes, unspecified as to length of time between rupture and onset of labor, third trimester (principal); Z3A.31 31 weeks gestation of pregnancy
CPT/HCPCS: 81001; 84112; 87086; 87491; 87591; G0378; G0379; 36415

== ENCOUNTER → 2018-12-22 | Outpatient (CLI) | payer MEDICAID ==
--- NOTE | 2018-12-23 19:39 | [facility]IC ---
OB ultrasound greater than 14 weeks 12/22/2018 Clinical History: Third trimester . Large for dates. Technique: A real-time ultrasound examination of the gravid uterus was performed. Multiple images were obtained. Findings: Comparison study is dated 06/23/2018. There is a single living IUP. The fetus is in a cephalic position. cardiac and somatic activity is seen. The heart rate is 139 beats per minutes. The maternal cervix is closed. It measures 3.8 cm in length. The placenta is posterior. No abnormality is seen. The amniotic fluid volume is within normal limits. The ROCAEL measures 14.3 cm. Neither maternal ovary is visualized. The following measurements were obtained: BPD 9.21cm 37 weeks 3 days HC 32.92 cm 37weeks 3 days AC 33.98 cm 37weeks 6 days FL 7.28 cm 37 weeks to days The estimated gestational age by ultrasound is 37 weeks 4 days plus or minus a standard deviation of 3 weeks. The estimated date of delivery by ultrasound is 01/08/2019. Since the previous examination has been appropriate interval growth. The estimated weight is 3264 g +/- 483 g (7 lbs. 3 oz.) Detailed evaluation of anatomy was not performed due to the advanced age of this . Impression: Single living IUP with an estimated gestational age by ultrasound of 37 weeks 4 days +/- a standard deviation of 3 weeks. Since the previous examination there has been appropriate interval growth. Electronically signed by: Rome Montenegro MD (12/23/2018 7:36 PM) [facility]
== END | disposition home or self-care (01) ==
LOC: KCIC US 10:53
PROVIDERS: ATTEND Family Medicine
DX: O36.63X0 Maternal care for excessive fetal growth, third trimester, not applicable or unspecified (principal); Z3A.37 37 weeks gestation of pregnancy
CPT/HCPCS: 76815

== ENCOUNTER 2019-01-03 11:35 | Observation (INO) | payer MEDICAID ==
--- NOTE | 2019-01-03 17:28 | RAD ---
CLINICAL HISTORY: presentation COMPARISON: None available. TECHNIQUE: Limited transabdominal ultrasound of the uterus was performed. FINDINGS: There is a single live fetus in cephalic position. Cardiac activity is visualized and documented at a rate of 125 beats per minute. The placenta is posterior without placenta previa. The amniotic fluid is normal for gestational stage. the amniotic fluid index is 16. Current measurements are: BPD - 9.65 cm = 39 weeks 3 days HC - 33.19 cm = 37 weeks 6 days AC - 35.09 cm = 39 weeks 0 day FL - 7.65 cm = 39 weeks 1 days The gestational size based on todays measurements is 38 weeks 6 days +/- 3 weeks. The estimated weight is 3642+/- 539 gm. This is at the 67 percentile for the expected gestational age. All measured ratios and indices are within normal limits. The estimated date of delivery is 01/11/2019. IMPRESSION: 1. Single live intrauterine gestation in cephalic presentation Electronically signed by: Tremaine Escalona MD (01/03/2019 5:26 PM) [facility]
== END 2019-01-03 13:00 | disposition home or self-care (01) ==
LOC: 3 SO LND 11:35
PROVIDERS: ADMIT Family Medicine; ATTEND Family Medicine
DX: Z34.93 Encounter for supervision of normal pregnancy, unspecified, third trimester (principal); Z3A.38 38 weeks gestation of pregnancy
CPT/HCPCS: 76805; G0378; G0379; 59025

== ENCOUNTER 2019-01-05 20:04 | Inpatient (IN) | payer MEDICAID ==
[~2019-01-05] VITALS: Ht 165.1 cm; Wt 116.1 kg
[2019-01-05] MEDS ORDERED: ONDANSETRON PF 4 MG/2 ML VIAL. IV PRN (20:15)
[2019-01-05] MEDS ORDERED: MAG HYDROX/ALUMINUM HYD/SIMETH 30 ML ORAL.SUSP PO PRN (20:15)
[2019-01-05] MEDS ORDERED: TERBUTALINE 1 MG/ML VIAL. SQ PRN (20:15)
[2019-01-05] MEDS ORDERED: BUTORPHANOL 2 MG/ML VIAL. IV PRN (20:15)
[2019-01-05] MEDS ORDERED: LIDOCAINE 1% PF 30 ML VIAL. INJ PRN (20:15)
[2019-01-05] MEDS ORDERED: OXYTOCIN 30 UNIT/500 ML PREMIX 500 ML IV PRN ×2 (20:15)
[2019-01-05] MEDS ORDERED: NALBUPHINE 10 MG/ML AMPUL. IV PRN (20:15)
[2019-01-05] MEDS ORDERED: fentaNYL PF VIAL 100 MCG/2 ML VIAL IV PRN (20:15)
[2019-01-05] MEDS ORDERED: ACETAMINOPHEN 325 MG TABLET. PO PRN (20:15)
[2019-01-05] MEDS ORDERED: IBUPROFEN 400 MG TABLET. PO PRN (20:15)
[2019-01-05] MEDS ORDERED: 0.9 % SODIUM CHLORIDE 10 ML DISP.SYRIN. IV PRN (20:15)
[2019-01-05] MEDS ORDERED: DINOPROSTONE 10 MG SUPP.VAG VG ONE (20:30)
[2019-01-05 20:58] LABS: BASO % 1 % (0-3); EOS # 0.1 x10^3/uL (0.0-0.7); EOS % 1 % (0-3); HEMATOCRIT 34.4 % (36.0-47.0); HEMOGLOBIN 11.9 g/dL (12.0-15.5); LYMPH # 1.5 x10^3/uL (1.0-4.8); LYMPH % 20 % (24-48); MEAN CORPUSCULAR HEMOGLOBIN 33 pg (25-35); MEAN CORPUSCULAR HGB CONC 35 g/dL (31-37); MEAN CORPUSCULAR VOLUME 95 fL (79-100); MONO # 0.6 x10^3/uL (0.0-1.1); MONO % 8 % (0-9); NEUT # 5.4 x10^3/uL (1.8-7.7); NEUT % 71 % (31-73); PLATELET COUNT 176 x10^3/uL (140-400); RED BLOOD COUNT 3.64 x10^6/uL (3.50-5.40); RED CELL DISTRIBUTION WIDTH 13.6 % (11.5-14.5); WHITE BLOOD COUNT 7.5 x10^3/uL (4.0-11.0)
[2019-01-05 20:59] LABS: BILIRUBIN,URINE NEGATIVE (NEG); CLARITY,URINE CLEAR; COLOR,URINE YELLOW; NITRITE,URINE NEGATIVE (NEG); PROTEIN,URINE NEGATIVE (NEG-TRACE); UROBILINOGEN,URINE 0.2 mg/dL (0.2 mg/dL)
[2019-01-05 21:05] LABS: BACTERIA,URINE MANY /HPF (0-FEW); RBC,URINE OCC /HPF (0-2); SQUAMOUS EPITHELIAL CELL,UR MANY /LPF; WBC,URINE TNTC /HPF (0-4)
[2019-01-05 21:06] LABS: YEAST,URINE PRESENT /HPF
[2019-01-05] MEDS: IV RINGERS,LACTATED 1000ML 1,000 ML IV SCH (21:52)
[2019-01-05 23:18] VITALS: BP 130/68
[2019-01-06] MEDS: CLINDAMYCIN 900MG PREMIX 50 ML IV SCH ×2 (06:12→14:27)
[2019-01-06] MEDS ORDERED: PNV1TABL25 PO (08:54)
--- NOTE | 2019-01-06 10:01 | RAD ---
OB LIMITED Clinical Indication: Patient in labor, unsure presenting part, may be fetus hand. Comparison: None. Findings: Real-time ultrasound imaging is performed. The presentation is cephalic. A hand is noted adjacent to the head. The placenta is posterior. Estimated heart rate 132 bpm. IMPRESSION: Presentation is cephalic. Electronically signed by: Shukri Farnsworth MD (01/06/2019 9:58 AM) [id number]
[2019-01-06] MEDS ORDERED: IV RINGERS,LACTATED 1000ML 1,000 ML IV SCH (12:07)
[2019-01-06] MEDS ORDERED: L&D EPIDURAL SYRINGE 50 ML EPID PRN (12:08)
[2019-01-06] MEDS ORDERED: ROPIVacaine 0.2% IN 0.9%NACL PF 40 MG/20 ML DISP.SYRIN. EPID PRN (12:15)
[2019-01-06] MEDS ORDERED: NALOXONE 0.4 MG/ML VIAL. IV PRN (12:15)
[2019-01-06] MEDS ORDERED: fentaNYL PF VIAL 100 MCG/2 ML VIAL EPID PRN (12:15)
[2019-01-06] MEDS ORDERED: ePHEDrine PF IN SALINE 50 MG/10 ML SYRINGE. IV PRN (12:15)
[2019-01-06] MEDS ORDERED: ONDANSETRON PF 4 MG/2 ML VIAL. IV PRN (12:15)
[2019-01-06] MEDS ORDERED: BUPIVACAINE MPF 0.25% 30 ML VIAL. ONE (12:36)
[2019-01-06] MEDS: IV RINGERS,LACTATED 1000ML 1,000 ML IV SCH (12:45)
[2019-01-06] MEDS ORDERED: CLINDAMYCIN 900MG PREMIX 50 ML IV SCH (14:00)
--- NOTE | 2019-01-06 16:44 | PDOC1 ---
OB - History Hx of Present Care: Good Care Ultrasounds: Normal mid trimester US Obstetrical Complications: None Medical Complications: None Past Family/Social History * Past Medical, Surgical, Family and Obstetric Histories reviewed from chart. Blood Type: O- Rubella: Immune RPR/VDRL: Negative GBS Status: Positive HBsAG: Negative OB - Chief Complaint & HPI Date of Admission: Date of Admission: Jan 05, 2019 at 20:04 Chief Complaint/History : 4 Para: 1 EDC: Jan 10, 2019 Reason for admission: induction of labor Indication for induction: other (Hx of rapid labor suspected macrosomia) Admission Nurse Assessment Rev: Yes OB - Admission Exam Physical Exam Vitals: VS - Last 72 Hours, by Label Date Time Temp Pulse Resp B/P (MAP) Pulse Ox O2 Delivery O2 Flow Rate FiO2 01/06/19 12:45 18 96 Room Air 01/06/19 12:45 18 96 Room Air 01/05/19 23:18 98.6 102 18 130/68 (88) Room Air 98.6 HEENT: Normal Heart: Regular Rate Lungs: Clear Abdomen: Gravid Cervical Dilatation: 3cm Effacement: 100% Station: -3 Membranes: Intact Amniotic Fluid: Clear Heart Rate: Normal Accelerations: Accelerations Present Decelerations: No decelerations Short Term Variability: Present Refrigeration Engineering Teacher Variability: Moderate Contractions on Admission: None KANDI BRICE MD Jan 06, 2019 16:44
[2019-01-06] MEDS ORDERED: ZOLPIDEM 5 MG TABLET. PO PRN (16:45)
[2019-01-06] MEDS ORDERED: HYDROCORTISONE 1% TOPICAL OINTMENT 30GM TUBE. TP PRN (16:45)
[2019-01-06] MEDS ORDERED: SIMETHICONE 80 MG TAB.CHEW PO PRN (16:45)
[2019-01-06] MEDS ORDERED: PHENYLEPH/MINERAL OIL/PETROLAT RECTAL OINTMENT TUBE. RC PRN (16:45)
[2019-01-06] MEDS ORDERED: OXYTOCIN 30 UNIT/500 ML PREMIX 500 ML IV PRN (16:45)
[2019-01-06] MEDS ORDERED: MAGNESIUM HYDROXIDE 2,400 MG/30 ML ORAL.SUSP. PO PRN (16:45)
[2019-01-06] MEDS ORDERED: diphenhydrAMINE HCL 25 MG CAPSULE PO PRN (16:45)
[2019-01-06] MEDS ORDERED: BENZOCAINE 20% TOPICAL AEROSOL SPRAY 57GM CAN. TP PRN (16:45)
[2019-01-06] MEDS ORDERED: 0.9 % SODIUM CHLORIDE 10 ML DISP.SYRIN. IV PRN (16:45)
[2019-01-06] MEDS ORDERED: ACETAMINOPHEN 325 MG TABLET. PO PRN (16:45)
[2019-01-06] MEDS ORDERED: MAG HYDROX/ALUMINUM HYD/SIMETH 30 ML ORAL.SUSP PO PRN (16:45)
[2019-01-06] MEDS ORDERED: MMR per PROTOCOL. MC PRN (16:45)
[2019-01-06] MEDS ORDERED: HYDROcodone/APAP 5/325MG 1 TAB TABLET PO PRN ×2 (18:45)
[2019-01-06 21:00] VITALS: BP 136/94
[2019-01-06 21:55] VITALS: BP 122/82
[2019-01-06] MEDS: IBUPROFEN 400 MG TABLET. PO SCH (22:47)
[2019-01-06] MEDS: BENZOCAINE/MENTHOL LOZENGE. PO PRN (23:19)
--- NOTE | 2019-01-07 01:02 | LDN ---
DATE OF DELIVERY: 01/06/2019 CLINICAL COURSE: This patient is a LC1 AB2 female with EDC of 01/10/2019, admitted for term induction due to history of rapid labor and suspected macrosomia. She had risks of Rh negative status and positive GBS status. She underwent Cervidil cervical ripening followed by Pitocin augmentation. She had artificial rupture of membranes at 2-3 cm after epidural anesthesia with clear fluid noted. She proceeded to complete without complication, delivering a viable male infant with Apgars of 8, 9 and 9 in the OA position. Head was suctioned upon delivery of the head, subsequently body was delivered and there was 30 second placental resuscitation done prior to clamping of the cord. This cord was clamped and infant was handed off. Cord blood was obtained as well as cord pH. There was a second-degree midline laceration, which was sutured with 3-0 chromic in a running locking fashion with good hemostasis. Uterus was firm with Pitocin and palpation after delivery of placenta, which was intact and 3-vessel cord noted. Mother and baby to recovery in stable condition. KANDI BRICE MD DR: MUARA/pushpa JOB#: [id number] / [id number]
[2019-01-07 02:55] VITALS: BP 89/58
[2019-01-07 05:33] LABS: BASO % 0 % (0-3); EOS % 0 % (0-3); HEMATOCRIT 32.6 % (36.0-47.0); HEMOGLOBIN 11.2 g/dL (12.0-15.5); LYMPH # 1.7 x10^3/uL (1.0-4.8); LYMPH % 18 % (24-48); MEAN CORPUSCULAR HEMOGLOBIN 32 pg (25-35); MEAN CORPUSCULAR HGB CONC 34 g/dL (31-37); MEAN CORPUSCULAR VOLUME 95 fL (79-100); MONO # 0.7 x10^3/uL (0.0-1.1); MONO % 7 % (0-9); NEUT # 7.2 x10^3/uL (1.8-7.7); NEUT % 74 % (31-73); PLATELET COUNT 145 x10^3/uL (140-400); RED BLOOD COUNT 3.44 x10^6/uL (3.50-5.40); RED CELL DISTRIBUTION WIDTH 14.1 % (11.5-14.5); WHITE BLOOD COUNT 9.7 x10^3/uL (4.0-11.0)
[2019-01-07 06:30] VITALS: BP 107/79
[2019-01-07] MEDS: BENZOCAINE/MENTHOL LOZENGE. PO PRN ×2 (06:37→21:15)
[2019-01-07] MEDS: IBUPROFEN 400 MG TABLET. PO SCH ×2 (06:37→14:51)
[2019-01-07] MEDS ORDERED: FERROUS SULFATE 325 MG TABLET. PO SCH (08:00)
--- NOTE | 2019-01-07 10:03 | PDOC ---
Provider Note Provider Note Doing well VSS Uterus NTTP FU in AM Vital Sign - Last 24 Hours 01/06/19 01/06/19 01/06/19 01/06/19 12:45 12:45 21:00 21:00 Temp 97.8 97.8 Pulse 107 Resp 18 20 B/P (MAP) 136/94 (108) Pulse Ox 96 96 97 O2 Delivery Room Air Room Air Room Air Room Air 01/06/19 01/07/19 01/07/19 21:55 02:55 06:30 Temp 98.1 97.6 97.7 98.1 97.6 97.7 Pulse 100 98 83 Resp 18 18 20 B/P (MAP) 122/82 (95) 89/58 (68) 107/79 (88) Pulse Ox 98 96 97 O2 Delivery Room Air Room Air Room Air CBC - BMP 01/07/19 05:00 ASHLI CHAVEZ MD Jan 07, 2019 10:03
[2019-01-07 14:54] VITALS: BP 109/70
[2019-01-07 18:11] VITALS: BP 108/68
[2019-01-07 23:00] VITALS: BP 116/69
[2019-01-08 06:08] VITALS: BP 115/74
--- NOTE | 2019-01-08 08:56 | PDOC3 ---
OB DISCHARGE SUMMARY DATE OF ADMISSION: 01/06/19 DATE OF DISCHARGE: 01/08/19 REASON FOR ADMISSION: Induction of labor PROCEDURES: Ultrasound INTRAPARTUM PROCEDURES: Spontanous Vag Deliv OPERATIONS: None DISCHARGE DIAGNOSIS: Term Delivered DISCHARGE INFORMATION: Activity, Diet HOSPITAL COURSE Unremarkable CONDITION AT DISCHARGE Stable ASHLI CHAVEZ MD Jan 08, 2019 08:56
--- NOTE | 2019-01-08 13:04 | NUR ---
Discharge Discharge instruction given to patient at this time. No questions or concerns noted. To follow up with Dr Nicole in 6 weeks. Ambulated off unit, with all belongings and family at her side.
[2019-01-08 13:07] VITALS: BP 107/69
== END 2019-01-08 14:31 | disposition home or self-care (01) | DRG 807 ==
LOC: 3 SO LND 20:04 → 3 NORTH 01-06 21:00
PROVIDERS: ADMIT Family Medicine; ATTEND Family Medicine
PROC: 10E0XZZ Delivery of Products of Conception, External Approach (ICD-10-PCS; principal; 2019-01-06)
PROC: 0KQM0ZZ Repair Perineum Muscle, Open Approach (ICD-10-PCS; 2019-01-06)
PROC: 10907ZC Drainage of Amniotic Fluid, Therapeutic from Products of Conception, Via Natural or Artificial Opening (ICD-10-PCS; 2019-01-06)
PROC: 3E0P7VZ Introduction of Hormone into Female Reproductive, Via Natural or Artificial Opening (ICD-10-PCS; 2019-01-06)
PROC: 00HU33Z Insertion of Infusion Device into Spinal Canal, Percutaneous Approach (ICD-10-PCS; 2019-01-06)
PROC: 3E0R3BZ Introduction of Anesthetic Agent into Spinal Canal, Percutaneous Approach (ICD-10-PCS; 2019-01-06)
PROC: 3E0234Z Introduction of Serum, Toxoid and Vaccine into Muscle, Percutaneous Approach (ICD-10-PCS; 2019-01-07)
DX: O99.824 Streptococcus B carrier state complicating childbirth (principal); Z37.0 Single live birth; O26.893 Other specified pregnancy related conditions, third trimester; Z67.41 Type O blood, Rh negative; O70.1 Second degree perineal laceration during delivery; Z3A.39 39 weeks gestation of pregnancy
CPT/HCPCS: 36415; 76815; 81001; 85025; 85461; 86592; 86850; 86900; 86901; 87086; J2590; J2791; J3010; J3490; J7120; G0378